=== PATIENT | female | born 1970 | race Caucasian/White ===

== ENCOUNTER 2022-05-23 02:44 | Inpatient (IN) | payer OTHER ==
[~2022-05-23] VITALS: Ht 160 cm; Wt 99.3 kg
[2022-05-23 02:57] VITALS: BP 109/53
--- NOTE | 2022-05-23 03:56 | NUR ---
Pt to room
--- NOTE | 2022-05-23 03:56 | NUR ---
Patient resting in bed, A/Ox4, chest rise and fall symmetrical, no c/o pain or s/s of distress, patient on monitor Addendum: 05/23/22 at 0356 by [id number] Patient resting in bed, A/Ox4, chest rise and fall symmetrical, no s/s of distress, patient on monitor
--- NOTE | 2022-05-23 04:18 | NUR ---
ER physycian assessing patient.
--- NOTE | 2022-05-23 06:28 | NUR ---
Dr. Nelson with pt
--- NOTE | 2022-05-23 06:30 | NUR ---
Patient resting in bed, A/Ox4, chest rise and fall symmetrical, no c/o pain or s/s of distress, patient on monitor
[2022-05-23] MEDS ORDERED: NACL 0.9% 1,000 ML IV ONE ×2 (07:10→10:20)
--- NOTE | 2022-05-23 07:24 | NUR ---
Change of shift report given to AM shift Nurse Giorgi REDDY. AM shift Nurse Giorgi RN verbalized understanding of report, no further questions.
--- NOTE | 2022-05-23 07:30 | NUR ---
a/o times 4, abd pain 08/02, no n/v, o2 sat 98% ra, ns started lac, sr up times 2, labs drawn sent to lab
[2022-05-23 07:33] LABS: BASOPHILS # (AUTO) 0.1 K/uL (0.00-0.22); BASOPHILS % (AUTO) 0.3 % (0.0-2.0); HEMATOCRIT 38.7 % (36-48); HEMOGLOBIN 12.7 g/dL (12.0-16.0); LYMPHOCYTES # (AUTO) 0.8 K/uL (2.5-16.5); MEAN CORPUSCULAR HEMOGLOBIN 30 pg (27-31); MEAN CORPUSCULAR HGB CONC 33 g/dL (33-37); MEAN CORPUSCULAR VOLUME 92.1 fL (80-94); MONOCYTES # (AUTO) 0.8 K/uL (0.8-1.0); MONOCYTES % (AUTO) 3.9 % (1.7-9.3); NEUTROPHILS # (AUTO) 19.8 K/uL (1.8-7.7); PLATELET COUNT (AUTO) 250 K/uL (140-450); RED BLOOD CELL COUNT(AUTO) 4.21 MIL/uL (4.20-5.40); WHITE BLOOD COUNT (AUTO) 21.5 K/uL (4.8-10.8)
[2022-05-23 07:52] LABS: ALBUMIN 4.2 g/dL (3.4-5.0); ANION GAP 11.6 (8-16); CARBON DIOXIDE 29.4 mmol/L (21-32); CREATININE 0.8 mg/dL (0.6-1.3); TOTAL BILIRUBIN 0.5 mg/dL (0.0-1.0)
[2022-05-23 07:54] LABS: LYMPHOCYTES % (AUTO) 3.7 % (20.5-51.1); NEUTROPHILS % (AUTO) 92.1 % (42.2-75.2)
[2022-05-23] MEDS ORDERED: KETOROLAC 15 MG/ML VIAL IVP ONE (08:35)
--- NOTE | 2022-05-23 09:19 | NUR ---
PT TO CT VIA WC
[2022-05-23 09:56] LABS: APPEARANCE,URINE CLEAR (CLEAR); BILIRUBIN,URINE NEGATIVE (NEGATIVE); BLOOD, URINE 1+ (NEGATIVE); COLOR,URINE ORANGE (YELLOW); LEUKOCYTE ESTERASE ,URINE TRACE (NEGATIVE); NITRITE, URINE POSITIVE (NEGATIVE); PH,URINE 5.5 (5.0-9.0); UGLUCOSE TRACE (NEGATIVE)
[2022-05-23 10:15] LABS: RBC,URINE 0-5 /HPF (0-5)
[2022-05-23] MEDS ORDERED: metroNIDAZOLE 500 MG/NS PREMIX 100 ML IV ONE (10:15)
[2022-05-23] MEDS ORDERED: cefTRIAXone 1,000 MG VIAL ONE (10:37)
--- NOTE | 2022-05-23 11:00 | NUR ---
SLEEPING, NO AC DISTRESS, O2 SAT 98% RA, SR UP TIMES 2.
[2022-05-23] MEDS ORDERED: ZOLPIDEM 5 MG TAB PO PRN (11:10)
[2022-05-23] MEDS ORDERED: ONDANSETRON 4 MG/2 ML VIAL IM/IVP PRN (11:10)
[2022-05-23] MEDS ORDERED: guaiFENesin DM 200/20 MG-10 ML 10 ML UDC PO PRN (11:10)
[2022-05-23] MEDS ORDERED: DOCUSATE SODIUM 100 MG GELCAP PO PRN (11:10)
[2022-05-23] MEDS ORDERED: ACETAMINOPHEN 325 MG TAB PO PRN (11:10)
[2022-05-23 11:46] LABS: PROTHROMBIN TIME 9.7 secs (10.8-13.4)
[2022-05-23 11:52] LABS: FREE T4 (FREE THYROXINE) 1.13 ng/dL (0.76-1.46); MAGNESIUM 1.9 mg/dL (1.8-2.4); PHOSPHORUS 2.9 mg/dL (2.5-4.9); THYROID STIMULATING HORMONE 1.45 uIU/mL (0.34-3.74)
[2022-05-23] MEDS ORDERED: ATEN25TA2 PO (12:10)
[2022-05-23] MEDS ORDERED: LEVO0.179 PO (12:10)
--- NOTE | 2022-05-23 12:45 | NUR ---
RECEIVED REPORT FROM ER NURSE FOR CONTINUITY OF CARE. PT STABLE ON TRANSPORT AND NO SIGN OF DISTRESS. A&OX4, SKIN INTACT, LOWER ABD PAIN 9/10, AMBULATORY AND VITALS STABLE. PT HAS A 20G IV IN HER LAC THAT IS INFUSING D5/NS AT 150ML/HR. CALL LIGHT WITHIN REACH, BED IN LOW POSITION AND ALL SAFETY MEASURES IN PLACE. WILL CONTINUE TO MONITOR.
--- NOTE | 2022-05-23 12:49 | NUR ---
PT TAKEN TO FLOOR, NO AC DISTRESS, REPORT GIVEN TO RENNY
[2022-05-23] MEDS: KETOROLAC 15 MG/ML VIAL IVP SCH ×2 (13:00→20:06)
[2022-05-23] MEDS: DEXT 5% /NACL 0.9% 1,000 ML IV SCH ×2 (14:05→17:50)
[2022-05-23] MEDS: HYDROcodone/APAP 7.5/325 MG 1 TAB PO PRN ×2 (16:44→22:27)
--- NOTE | 2022-05-23 19:00 | NUR ---
ENDORSED PT TO LABORER GOLF COURSE NURSE SHANNON FOR CONTINUITY OF CARE. PT IS STABLE.
--- NOTE | 2022-05-23 19:01 | NUR ---
RECEIVED PT FROM MORNING SHIFT NURSE. PT IS LYING ON BED, SLEEPING. PT IS AOX4, AMBULATORY, ABLE TO VERBALIZE NEEDS AND ABLE TO FOLLOW COMMANDS. PT IS ON ROOM AIR AND ON NPO EXCEPT MEDS AND CAN DRINK CUP OF WATER. PT HAS IV ON LEFT AC GAUGE 20 RUNNING WITH D5NS AT 150 ML/HR. PT SKIN IS INTACT. ALL SAFETY MEASURES IMPLEMENTED. BED IN LOW POSITION, BED WHEELS ON LOCK AND CALL LIGHT WITHIN REACH.
--- NOTE | 2022-05-23 19:30 | NUR ---
PT WAS PUT ON 3L NC DUE PT'S O2 SAT IS 82. PT IS NOW SATING AT 94%
[2022-05-23] MEDS: metroNIDAZOLE 500 MG/NS PREMIX 100 ML IV SCH (20:07)
--- NOTE | 2022-05-23 20:07 | NUR ---
SCHEDULED AND PRESCRIBED MEDICATION WAS GIVEN TO PT PER MD ORDER. ALL SAFETY MEASURES IMPLEMENTED. BED IN LOW POSITION, BED WHEELS ON LOCK AND CALL LIGHT WITHIN REACH.
--- NOTE | 2022-05-23 22:27 | NUR ---
PRN PAIN MEDICATION WAS GIVEN TO PT DUE TO ABD PAIN WITH PAIN SCALE OF 6/10. ALL SAFETY MEASURES IMPLEMENTED. BED IN LOW POSITION, BED WHEELS ON LOCK AND CALL LIGHT WITHIN REACH.
--- NOTE | 2022-05-24 | NUR ---
PT IS SLEEPING. CHEST RISE AND FALL SYMMETRICALLY NOTED. RESPIRATION IS EVEN AND UNLABORED. ALL SAFETY MEASURES IMPLEMENTED. BED IN LOW POSITION, BED WHEELS ON LOCK AND CALL LIGHT WITHIN REACH.
[2022-05-24] MEDS: DEXT 5% /NACL 0.9% 1,000 ML IV SCH ×4 (00:41→20:30)
[2022-05-24] MEDS: HYDROcodone/APAP 7.5/325 MG 1 TAB PO PRN ×2 (02:34→16:41)
[2022-05-24] MEDS: KETOROLAC 15 MG/ML VIAL IVP SCH ×3 (04:18→21:27)
[2022-05-24] MEDS: metroNIDAZOLE 500 MG/NS PREMIX 100 ML IV SCH ×3 (04:18→21:26)
[2022-05-24 06:14] LABS: HEMATOCRIT 37.1 % (36-48); HEMOGLOBIN 12.4 g/dL (12.0-16.0); LYMPHOCYTES # (AUTO) 0.6 K/uL (2.5-16.5); LYMPHOCYTES % (AUTO) 3.9 % (20.5-51.1); MEAN CORPUSCULAR HEMOGLOBIN 31 pg (27-31); MEAN CORPUSCULAR HGB CONC 33 g/dL (33-37); MEAN CORPUSCULAR VOLUME 93.2 fL (80-94); MONOCYTES # (AUTO) 0.5 K/uL (0.8-1.0); MONOCYTES % (AUTO) 3.1 % (1.7-9.3); NEUTROPHILS # (AUTO) 13.5 K/uL (1.8-7.7); PLATELET COUNT (AUTO) 219 K/uL (140-450); RED BLOOD CELL COUNT(AUTO) 3.98 MIL/uL (4.20-5.40); RED CELL DISTRIBUTION WIDTH 13.9 % (11.6-13.7); WHITE BLOOD COUNT (AUTO) 14.5 K/uL (4.8-10.8)
[2022-05-24 06:34] LABS: ANION GAP 16.2 (8-16); CREATININE 1.5 mg/dL (0.6-1.3); POTASSIUM 4.2 mmol/L (3.5-5.1)
[2022-05-24 07:08] LABS: T4 (THYROXINE) 7.1 ug/dL (4.5-12.0)
--- NOTE | 2022-05-24 07:11 | NUR ---
PT IS STABLE. NO ACUTE EVENTS THROUGHOUT THE NIGHT.NO S/SX OF DISTRESS AT THIS MOMENT.ALL NEEDS ATTENDED. ALL PRECAUTIONS IN PLACE. CALL LIGHT WITHIN REACH. ENDORSED TO DAY RN.
[2022-05-24] MEDS: PANTOPRAZOLE 40 MG TABEC PO SCH (08:34)
--- NOTE | 2022-05-24 08:36 | NUR ---
ADMINISTERED SCHEDULED MEDICATION DUE. PT TOLERATING WELL.
--- NOTE | 2022-05-24 08:42 | NUR ---
INFORMED DR EDUARDO ABOUT PT BP 116/39. AND HOW BP WAS TRENDING DOWN. NO SYMPTOMS. PT C/O PAIN 01/02. AWAITING FOR NEW ORDERS.
--- NOTE | 2022-05-24 09:07 | NUR ---
PATIENT HAS BEEN SCREENED AND CATEGORIZED MODERATE NUTRITION RISK. PATIENT WILL BE SEEN WITHIN 3-5 DAYS OF ADMISSION. REVIEWED BY GIGI ART RD
[2022-05-24] MEDS ORDERED: IBUPROFEN 600 MG TAB PO SCH (09:37)
--- NOTE | 2022-05-24 10:27 | NUR ---
MEDICATED PT FOR PAIN WITH IBUPROFEN. ORDERED BY DR EDUARDO.
[2022-05-24] MEDS ORDERED: LORazepam 2 MG/ML VIAL IVP SCH (11:15)
[2022-05-24] MEDS ORDERED: MORPHINE SULFATE 2 MG/ML SYR IVP PRN (11:35)
--- NOTE | 2022-05-24 13:55 | NUR ---
FAMILY AT BEDSIDE.SPOKE TO PT LETI. REQUESTED COPY OF CT IMAGING DONE. STATES FAMILY IS VERY CONCERNED IN [place] AND HAS A DR IN FAMILY IN [place] AND WANTS TO SHARE IMAGING RESULTS.
--- NOTE | 2022-05-24 14:44 | NUR ---
RECEIVED CALL FROM LAB WITH CRITICAL VALUE LACTIC ACID 3.0. INFORMED DR EDUARDO
--- NOTE | 2022-05-24 14:45 | NUR ---
MAKING ROUNDS PT IN BED SLEEPING. SON AT BEDSIDE.
--- NOTE | 2022-05-24 15:20 | NUR ---
PT TAKEN OFF UNIT TO RADIOLOGY.
--- NOTE | 2022-05-24 15:41 | NUR ---
PT RETURN FROM RADIOLOGY. SON AT BEDSIDE. PT AMBULATED TO RESTROOM AND BACK TO BED. PT PLACED ON OXYGEN AND IV CONNECTED. REPOSITIONED IN BED. BED IN LOWEST POSITION. CALL LIGHT WITHIN REACH.
[2022-05-24 16:00] VITALS: BP 118/50
--- NOTE | 2022-05-24 17:30 | NUR ---
MAKING ROUNDS. PT STATES SHE FEELS BETTER DUE TO THE MEDICATION. AT BEDSIDE.
--- NOTE | 2022-05-24 18:57 | NUR ---
MAKING ROUNDS PT TALKING WITH FAMILY MEMBER AT BEDSIDE. CALL LIGHT WITHIN REACH.
--- NOTE | 2022-05-24 19:15 | NUR ---
ENDORSED PT TO HAND RIGGER NURSE. PT IN STABLE CONDITION.
--- NOTE | 2022-05-24 19:16 | NUR ---
RECEIVED REPORT FROM DAY SHIFT NURSE MARILU FOR CONTINUITY OF CARE. PT AWAKE IN BED WITH FAMILY MEMBER AT BEDSIDE. A&O4, ABLE TO COMMUNICATE NEEDS. ON 3 L CANNULA, RESPIRATIONS EVEN AND UNLABORED. AMBULATORY. CONTINENT TO BOWEL AND BLADDER. SKIN INTACT, WARM AND DRY TO TOUCH. NPO EXCEPT MEDS CAN DRINK WATER. NPO SIGN IN PLACE. IV SITE ON LAC 20G, INFUSING IVF. INITIAL ASSESSMENT DONE. POC DISCUSSED. CALL LIGHT WITHIN REACH SAFETY PRECAUTIONS IN PLACE.
[2022-05-24 20:00] VITALS: BP 108/63
--- NOTE | 2022-05-24 20:00 | NUR ---
Patient's Plan of Care was discussed and reviewed with AVTAR HARE.
--- NOTE | 2022-05-24 21:40 | NUR ---
ADMINISTERED 2100 MEDICATION METRONIDAZOLE IVPB AND TORADOL IVP TO PATIENT. BP WAS 108/63, HR WAS 101. PATIENT TOLERATED WELL. INFORMED COMMERCIAL GREEN BUILDING DESIGNER PAYAM THAT MEDICATION WAS ADMINISTERED.
[2022-05-25] MEDS: DEXT 5% /NACL 0.9% 1,000 ML IV SCH ×5 (00:14→23:10)
[2022-05-25] MEDS: HYDROcodone/APAP 7.5/325 MG 1 TAB PO PRN ×2 (01:27→14:24)
--- NOTE | 2022-05-25 01:27 | NUR ---
PT COMPLAINED OF ABD PAIN 10/02. PT STATED NORCO WORKED WELL WITH HER PAIN. PRN PAIN MED WAS GIVEN.
[2022-05-25] MEDS ORDERED: LORazepam 0.5 MG TAB PO PRN (03:15)
--- NOTE | 2022-05-25 03:19 | NUR ---
PT TOO ANXIOUS. PT STATED HER PAIN WAS NOT RELIEVED BY PAIN MED AND THAT SHE WAS TOO ANXIOUS. V/S 145/82, 114, 40 97% ON 3L NC. DR EDUARDO WAS INFORMED. RECEIVED ORDER FOR ANXIETY. ATIVAN 0.5 MG PO PRN Q6HR. PT CLOSELY MONITORED.
[2022-05-25 04:00] VITALS: BP 142/83
--- NOTE | 2022-05-25 04:00 | NUR ---
V/S WAS TAKEN. PT STATED HER ANXIETY WAS RELIEVED A LITTLE BIT. STILL HAVING 9/10 ABD PAIN. MAUREEN GARCIA WAS INFORMED.
[2022-05-25] MEDS: metroNIDAZOLE 500 MG/NS PREMIX 100 ML IV SCH ×3 (04:28→20:09)
[2022-05-25] MEDS: KETOROLAC 15 MG/ML VIAL IVP SCH (04:29)
--- NOTE | 2022-05-25 04:43 | NUR ---
ADMINISTERED 0500 METRONIDAZOLE IVPB AND TORADOL IVP MEDICATION TO PATIENT. PATIENT TOLERATED WELL. INFORMED AVTAR HARE THAT MEDICATION WAS GIVEN.
[2022-05-25] MEDS ORDERED: LEVOTHYROXINE 0.075 MG TAB ONE (05:33)
[2022-05-25] MEDS ORDERED: LEVOTHYROXINE 0.1 MG TAB ONE (05:34)
[2022-05-25] MEDS: LEVOTHYROXINE 0.075 MG, LEVOTHYROXINE 0.1 MG PO SCH ×2 (05:35)
--- NOTE | 2022-05-25 07:05 | NUR ---
ASSUMED CONTINUITY OF CARE. INITIAL ASSESSMENT DONE. EXPLAINED DIAGNOSIS, PLAN OF CARE, PAIN MANAGEMENT TEACHING, NPO EXCEPT MEDS, USE OF CALL LIGHT/BED/TV/BATHROOM. VERBALIZED UNDERSTANDING. CALL LIGHT WITHIN REACH.
--- NOTE | 2022-05-25 07:08 | NUR ---
GAVE BEDSIDE REPORT TO DAY SHIFT NURSE LAMINE FOR CONTINUITY OF CARE. ALL NEEDS MET THROUGHOUT SHIFT. PT IS STABLE.
[2022-05-25 07:25] LABS: HEMATOCRIT 33.7 % (36-48); HEMOGLOBIN 11.6 g/dL (12.0-16.0); MEAN CORPUSCULAR HEMOGLOBIN 32 pg (27-31); MEAN CORPUSCULAR HGB CONC 35 g/dL (33-37); MEAN CORPUSCULAR VOLUME 91.6 fL (80-94); PLATELET COUNT (AUTO) 147 K/uL (140-450); RED BLOOD CELL COUNT(AUTO) 3.68 MIL/uL (4.20-5.40); RED CELL DISTRIBUTION WIDTH 13.9 % (11.6-13.7); WHITE BLOOD COUNT (AUTO) 12.8 K/uL (4.8-10.8)
[2022-05-25 07:30] LABS: ANION GAP 12.7 (8-16); CARBON DIOXIDE 24.6 mmol/L (21-32); CREATININE 0.8 mg/dL (0.6-1.3); POTASSIUM 3.3 mmol/L (3.5-5.1)
[2022-05-25 08:28] VITALS: BP 153/75
[2022-05-25 08:47] LABS: EOSINOPHILS % (MANUAL) 2 % (0-4); LYMPHOCYTES % (MANUAL) 3 % (20-46); MONOCYTES % (MANUAL) 1 % (5-12)
[2022-05-25] MEDS: PANTOPRAZOLE 40 MG TABEC PO SCH (08:49)
[2022-05-25] MEDS: atenoloL 25 MG TAB PO SCH (08:49)
[2022-05-25] MEDS ORDERED: NON-FORMULARY ITEM (Levothyroxine Sodium 1 TAB) PO SCH (09:00)
[2022-05-25] MEDS ORDERED: MAGNESIUM HYDROXIDE 2400 MG/30 ML UDC PO PRN (09:20)
--- NOTE | 2022-05-25 09:20 | NUR ---
DC PLANNING LATE ENTRY PT SEEN 05/24 VINITA MET WITH PT AND PTS PARTNER, LETI AT BEDSIDE TO COMPLETE ASSESSMENT. PT ALERT AND ORIENTED AND ABLE TO PROVIDE ALL OF HER OWN INFORMATION. PT REPORTS RESIDING IN A SINGLE STORY HOME WITH HER AUNT, AT THE ADDRESS LISTED ON FILE. PT IDENTIFIED LETI FERNANDEZ, PARTNER, AND IKER GARCIA, UNCLE, . PT DENIES AD IN PLACE AND DECLINED AD OFFERED BY VINITA. PT REPORTS MEETING WITH PCP REGULARLY, LAST VISIT WITH PCP, 2-3 MONTHS AGO. PT DENIES AD IN PLACE AND DECLINED AD OFFERED BY VINITA. PT REPORTS MEDICATION COMPLIANCE AND REPORTS RECEIVING MEDICATION FROM [facility] IN [facility] [address], IN [place] WHEN NEEDED. PT REPORTS BEING INDEPENDENT IN ALL ACTIVITIES AND DENIES USE OF DME. PT DENIES MH/HOLLIDAY HX. PT DENIES HX OF DIABETES, DIALYSIS, HH, SNF PLACEMENT. Addendum: 05/25/22 at 0921 by Kristine AMADO Amended: Links added.
[2022-05-25] MEDS ORDERED: MAGNESIUM HYDROXIDE 2400 MG/30 ML UDC PO SCH (09:55)
[2022-05-25] MEDS: POTASSIUM CHLORIDE 10 MEQ TABER PO PRN (10:11)
--- NOTE | 2022-05-25 10:59 | NUR ---
DR. EDUARDO CAME AND SPOKE TO PT. AND PT. AT BEDSIDE.
[2022-05-25] MEDS ORDERED: MORPHINE SULFATE 2 MG/ML SYR IVP PRN (11:10)
--- NOTE | 2022-05-25 13:30 | NUR ---
INSERTED NEW IV ACCESS ON LEFT FOREARM GAUGE #22. D/C AND REMOVED IV ACCESS ON LEFT AC GAUGE #20 DUE TO LEAKAGE.
[2022-05-25 16:00] VITALS: BP 110/64
--- NOTE | 2022-05-25 16:42 | NUR ---
AMBULATES ON HALLWAY WITH ASSISTANCE FROM PT. . TOLERATED WELL. NO C/O PAIN. NO SOB, NOTED.
--- NOTE | 2022-05-25 19:25 | NUR ---
REPORT GIVEN TO SHANNON TEIXEIRA FOR CONTINUITY OF CARE. IVF INFUSING WELL. IN STABLE CONDITION.
--- NOTE | 2022-05-25 19:26 | NUR ---
RECEIVED PT FROM MORNING SHIFT NURSE. PT IS SITTING ON THE BED, TALKING TO HIS BEDSIDE. PT IS AOX4, AMBULATORY, ABLE TO VERBALIZE NEEDS AND ABLE TO FOLLOW COMMANDS. PT IS ON 3L NC AND ON FULL LIQUID DIET. PT HAS IV ON LEFT FOREARM GAUGE 20 RUNNING WITH D5NS AT 150 ML/HR. PT SKIN IS INTACT. PT DENIES PAIN AT THIS TIME. NO S/S OF RESPIRATORY DISTRESS NOTED. ALL SAFETY MEASURES IMPLEMENTED. BED IN LOW POSITION, BED WHEELS ON LOCK AND CALL LIGHT WITHIN REACH.
--- NOTE | 2022-05-25 22:00 | NUR ---
ASSISTED PT TO THE BATHROOM. NO COMPLAIN OF PAIN AT THIS TIME. NO S/S OF RESPIRATORY DISTRESS NOTED. ALL SAFETY MEASURES IMPLEMENTED. BED IN LOW POSITION, BED WHEELS ON LOCK AND CALL LIGHT WITHIN REACH.
[2022-05-26] MEDS: HYDROcodone/APAP 7.5/325 MG 1 TAB PO PRN ×2 (00:12→12:24)
--- NOTE | 2022-05-26 00:12 | NUR ---
PRN PAIN MEDICATION WAS GIVEN TO PT DUE TO ABD PAIN WITH THE PAIN SCALE OF 6/10. ALL SAFETY MEASURES IMPLEMENTED. BED IN LOW POSITION, BED WHEELS ON LOCK AND CALL LIGHT WITHIN REACH.
--- NOTE | 2022-05-26 02:00 | NUR ---
PT IS ON SLEEP. CHEST RISE AND FALL SYMMETRICALLY NOTED. RESPIRATION IS EVEN AND UNLABORED. ALL SAFETY MEASURES IMPLEMENTED. BED IN LOW POSITION, BED WHEELS ON LOCK AND CALL LIGHT WITHIN REACH.
[2022-05-26 04:00] VITALS: BP 102/50
[2022-05-26] MEDS: metroNIDAZOLE 500 MG/NS PREMIX 100 ML IV SCH ×3 (04:19→20:02)
[2022-05-26] MEDS ORDERED: LEVOTHYROXINE 0.1 MG TAB ONE ×2 (05:31→05:34)
[2022-05-26] MEDS ORDERED: LEVOTHYROXINE 0.075 MG TAB ONE ×2 (05:31→05:34)
[2022-05-26] MEDS: LEVOTHYROXINE 0.075 MG, LEVOTHYROXINE 0.1 MG PO SCH ×2 (05:39)
[2022-05-26] MEDS: DEXT 5% /NACL 0.9% 1,000 ML IV SCH ×3 (05:59→19:59)
[2022-05-26 07:15] LABS: BASOPHILS % (AUTO) 0.1 % (0.0-2.0); EOSINOPHILS % (AUTO) 0.2 % (0.0-4.0); HEMATOCRIT 30.7 % (36-48); HEMOGLOBIN 10.3 g/dL (12.0-16.0); LYMPHOCYTES # (AUTO) 0.6 K/uL (2.5-16.5); LYMPHOCYTES % (AUTO) 5.4 % (20.5-51.1); MEAN CORPUSCULAR HEMOGLOBIN 31 pg (27-31); MEAN CORPUSCULAR HGB CONC 33 g/dL (33-37); MEAN CORPUSCULAR VOLUME 92.6 fL (80-94); MONOCYTES # (AUTO) 0.4 K/uL (0.8-1.0); MONOCYTES % (AUTO) 3.7 % (1.7-9.3); NEUTROPHILS # (AUTO) 10.5 K/uL (1.8-7.7); NEUTROPHILS % (AUTO) 90.6 % (42.2-75.2); PLATELET COUNT (AUTO) 150 K/uL (140-450); RED BLOOD CELL COUNT(AUTO) 3.32 MIL/uL (4.20-5.40); RED CELL DISTRIBUTION WIDTH 14.3 % (11.6-13.7); WHITE BLOOD COUNT (AUTO) 11.6 K/uL (4.8-10.8)
[2022-05-26 07:28] LABS: ANION GAP 11.5 (8-16); CARBON DIOXIDE 25.1 mmol/L (21-32); CREATININE 0.7 mg/dL (0.6-1.3); POTASSIUM 3.6 mmol/L (3.5-5.1)
--- NOTE | 2022-05-26 07:40 | NUR ---
PT IS STABLE. NO ACUTE EVENTS THROUGHOUT THE NIGHT.NO S/SX OF DISTRESS AT THIS MOMENT.ALL NEEDS ATTENDED. ALL PRECAUTIONS IN PLACE. CALL LIGHT WITHIN REACH. ENDORSED TO DAY NURSE.
--- NOTE | 2022-05-26 07:41 | NUR ---
RECEIVED REPORT FROM PHOTOGRAPHIC COLORIST NURSE, SHANNON, FOR CONTINUITY OF CARE. PT IN BED RESTING AT THIS TIME. RESPIRATIONS ARE EVEN AND UNLABORED. PT IS ON 3L 02 VIA NC. NO SIGNS OF DISTRESS NOTED. PT IS ALERT AND ORIENTED X4, ABLE TO VERBALIZE NEEDS. NO SIGNS OF PAIN OR DISCOMFORT NOTED. CALL LIGHT WITHIN REACH. ALL SAFETY MEASURES IN PLACE.
[2022-05-26 08:00] VITALS: BP 105/51
[2022-05-26] MEDS: PANTOPRAZOLE 40 MG TABEC PO SCH (08:14)
[2022-05-26] MEDS: atenoloL 25 MG TAB PO SCH (08:15)
--- NOTE | 2022-05-26 08:15 | NUR ---
ADMINISTERED ALL SCHEDULED MEDICATION. EDUCATED PT ON MEDS ADMINISTERED. ANSWERED ALL QUESTIONS. PT TOLERATED WELL.
--- NOTE | 2022-05-26 12:05 | NUR ---
DID ROUNDS ON PT. PT RESTING AT THIS TIME. FAMILY AT BEDSIDE. NO SIGNS OF DISTRESS. NO SIGNS OF PAIN OR DISCOMFORT.
[2022-05-26 16:00] VITALS: BP 111/61
--- NOTE | 2022-05-26 16:01 | NUR ---
WENT TO CHECK ON PT. PT AT BEDSIDE. PT ASKING FOR ANOTHER UPDATE. GAVE UPDATE.
--- NOTE | 2022-05-26 16:16 | NUR ---
05/26/22 RD INITIAL ASSESSMENT COMPLETED PLEASE REFER TO NUTRITION ASSESSMENT UNDER CARE ACTIVITY FOR ESTIMATED NUTRITIONAL NEEDS. 1. RECOMMEND ADDING CCHO 60 GM TO FULL LIQUID DIET TOLERATED 2. RECOMMEND ADVANCING TO CCHO 60 GM DIET WHEN/IF MEDICALLY APPROPRIATE 3. RECOMMEND GLUCERNA BID TO HELP INCREASE PO INTAKE -PROVIDES 440 KCAL AND 20 GM PROTEIN DAILY 4. PROVIDED NUTRITION EDUCATION WITH HANDOUTS ON CARB COUNTING FOR DM 5. RD TO FOLLOW-UP 3-5 DAYS, MODERATE RISK REVIEWED BY GIGI ART RD
--- NOTE | 2022-05-26 19:10 | NUR ---
ENDORSED PT TO DRAWING PRESS OPERATOR NURSESHANNON, FOR CONTINUITY OF CARE. PT IS STABLE.
--- NOTE | 2022-05-26 22:00 | NUR ---
ASSISTED PT TO THE BATHROOM. PT DENIES PAIN AT THIS TIME. NO S/S OF RESPIRATORY DISTRESS NOTED. ALL SAFETY MEASURES IMPLEMENTED. BED IN LOW POSITION, BED WHEELS ON LOCK AND CALL LIGHT WITHIN REACH.
[2022-05-27] VITALS: BP 112/52
--- NOTE | 2022-05-27 | NUR ---
PT IS SLEEPING. CHEST RISE AND FALL SYMMETRICALLY NOTED. RESPIRATION IS EVEN AND UNLABORED.ALL SAFETY MEASURES IMPLEMENTED. BED IN LOW POSITION, BED WHEELS ON LOCK AND CALL LIGHT WITHIN REACH.
--- NOTE | 2022-05-27 02:00 | NUR ---
CHECKED THE PT STILL SLEEPING. CHEST RISE AND FALL SYMMETRICALLY NOTED. RESPIRATION IS EVEN AND UNLABORED.ALL SAFETY MEASURES IMPLEMENTED. BED IN LOW POSITION, BED WHEELS ON LOCK AND CALL LIGHT WITHIN REACH.
[2022-05-27] MEDS: DEXT 5% /NACL 0.9% 1,000 ML IV SCH ×3 (02:01→13:25)
[2022-05-27] MEDS: metroNIDAZOLE 500 MG/NS PREMIX 100 ML IV SCH ×3 (04:14→21:36)
[2022-05-27] MEDS ORDERED: LEVOTHYROXINE 0.075 MG TAB ONE (05:50)
[2022-05-27] MEDS ORDERED: LEVOTHYROXINE 0.1 MG TAB ONE (05:50)
[2022-05-27] MEDS: LEVOTHYROXINE 0.075 MG, LEVOTHYROXINE 0.1 MG PO SCH ×2 (05:53)
[2022-05-27 06:58] LABS: BASOPHILS % (AUTO) 0.2 % (0.0-2.0); EOSINOPHILS # (AUTO) 0.1 K/uL (0-0.4); EOSINOPHILS % (AUTO) 0.6 % (0.0-4.0); HEMOGLOBIN 10.5 g/dL (12.0-16.0); LYMPHOCYTES % (AUTO) 11.2 % (20.5-51.1); MEAN CORPUSCULAR HEMOGLOBIN 31 pg (27-31); MEAN CORPUSCULAR HGB CONC 34 g/dL (33-37); MEAN CORPUSCULAR VOLUME 92.1 fL (80-94); MONOCYTES # (AUTO) 0.8 K/uL (0.8-1.0); MONOCYTES % (AUTO) 8.4 % (1.7-9.3); NEUTROPHILS # (AUTO) 7.3 K/uL (1.8-7.7); NEUTROPHILS % (AUTO) 79.6 % (42.2-75.2); PLATELET COUNT (AUTO) 166 K/uL (140-450); RED BLOOD CELL COUNT(AUTO) 3.36 MIL/uL (4.20-5.40); RED CELL DISTRIBUTION WIDTH 14.3 % (11.6-13.7); WHITE BLOOD COUNT (AUTO) 9.2 K/uL (4.8-10.8)
--- NOTE | 2022-05-27 07:05 | NUR ---
RECEIVED REPORT GIVEN FROM NIGHT NURSE SHANNON FOR CONTINUITY OF CARE. INITIAL ASSESMENT DONE. IVF INFUSING WELL. CALL LIGHT KEPT WITHIN REACH. WILL CONTINUE TO MONITOR.
--- NOTE | 2022-05-27 07:10 | NUR ---
RECEIVED REPORT FROM NIGHT NURSE ALVERTO FOR CONTINUITY OF CARE. IVF INFUSING WELL. INITIAL ASSESSMENT DONE. CALL LIGHT KEPT WITHIN REACH. WILL CONTINUE TO MONITOR.
[2022-05-27 07:17] LABS: ANION GAP 8.8 (8-16); CARBON DIOXIDE 26.2 mmol/L (21-32); CREATININE 0.6 mg/dL (0.6-1.3)
[2022-05-27 08:00] VITALS: BP 122/64
--- NOTE | 2022-05-27 08:30 | NUR ---
SEEN BY DR. ARAIZA
[2022-05-27] MEDS: POTASSIUM CHLORIDE 10 MEQ TABER PO PRN (09:15)
[2022-05-27] MEDS: PANTOPRAZOLE 40 MG TABEC PO SCH (09:15)
[2022-05-27] MEDS: atenoloL 25 MG TAB PO SCH (09:15)
--- NOTE | 2022-05-27 09:15 | NUR ---
SCHEDULED MEDICATIONS GIVEN. TOLERATING WELL. PRN K-DUR WAS GIVEN FOR LOW POTASSIUM.
--- NOTE | 2022-05-27 13:45 | NUR ---
SEEN BY DR. DASH.
[2022-05-27] MEDS: POTASSIUM CHL 40 MEQ/ D5-1/2NS 1,000 ML IV SCH (13:50)
--- NOTE | 2022-05-27 13:50 | NUR ---
PT STATION ENGINEER CHIEF BY ALEJANDRINA FROM OR FOR EGD.
[2022-05-27] MEDS ORDERED: FUROSEMIDE 20 MG/2 ML VIAL IVP SCH (13:55)
[2022-05-27] MEDS ORDERED: diphenhydrAMINE 50 MG/ML VIAL ONE (13:58)
[2022-05-27] MEDS ORDERED: fentaNYL citrate 0.05 MG/ML VIAL ONE (13:58)
[2022-05-27] MEDS ORDERED: MIDAZOLAM 2 MG/2 ML VIAL ONE (13:58)
[2022-05-27] MEDS: MIDAZOLAM 2 MG/2 ML VIAL IVP ONE ×2 (14:13→14:49)
[2022-05-27] MEDS: fentaNYL citrate 0.05 MG/ML VIAL IVP ONE ×2 (14:14→14:48)
--- NOTE | 2022-05-27 14:35 | NUR ---
PT RETURN FROM OR. S/P EGD. V/S MONITOR. NO C/O PAIN OR DISCOMFORT. ON FULL LIQUID DIET. WILL CONTINUE TO MONITOR.
[2022-05-27 16:00] VITALS: BP 115/70
[2022-05-27] MEDS: METOCLOPRAMIDE 10 MG/2 ML INJ VIAL IVP SCH (17:00)
--- NOTE | 2022-05-27 18:30 | NUR ---
REINSERTED IV TO LT HAND. WITH GOOD BLOOD RETURN.
--- NOTE | 2022-05-27 19:20 | NUR ---
BEDSIDE REPORT GIVEN TO JOSE FOR CONTINUITY OF CARE. REMAINS STABLE.
--- NOTE | 2022-05-27 19:30 | NUR ---
RECEIVED REPORT FROM DAY SHIFT NURSE BANDAR FOR CONTINUITY OF CARE. PATIENT IS A&O X4, LITHUANIAN SPEAKING. PATIENT IS ON 3L NC; BREATHING IS NORMAL WITH SYMMETRICAL RISE AND FALL OF CHEST. IV IS A L HAND 24G; RUNNING D5 NS AT 150. PATIENT IS SITTING UP, HIGH-FOWLERS POSITION VISITING WITH FAMILY. BED IS IN LOWEST POSITION, WHEELS LOCKED, CALL LIGHT IN PLACE. WILL CONTINUE TO OBSERVE PATIENT.
[2022-05-27 20:00] VITALS: BP 102/40
[2022-05-27] MEDS: LORazepam 1 MG TAB PO PRN (21:48)
[2022-05-28 04:00] VITALS: BP 119/54
[2022-05-28] MEDS: POTASSIUM CHL 40 MEQ/ D5-1/2NS 1,000 ML IV SCH (04:11)
--- NOTE | 2022-05-28 04:30 | NUR ---
PATIENT SLEPT PERIODICALLY THROUGHOUT THE NIGHT, WAKING UP AT TIMES. NEW IV WAS PLACED IN PATIENT. NEW IV IS A 22G R HAND. IV IS PATENT. PATIENT IS BREATHING NORMAL WITH SYMMETRICAL RISE AND FALL OF CHEST. WILL CONTINUE TO OBSERVE PATIENT.
[2022-05-28] MEDS: HYDROcodone/APAP 7.5/325 MG 1 TAB PO PRN ×2 (04:44→13:12)
[2022-05-28] MEDS ORDERED: LEVOTHYROXINE 0.075 MG TAB ONE (05:35)
[2022-05-28] MEDS ORDERED: LEVOTHYROXINE 0.1 MG TAB ONE (05:35)
[2022-05-28] MEDS: LEVOTHYROXINE 0.075 MG, LEVOTHYROXINE 0.1 MG PO SCH ×2 (05:39)
[2022-05-28] MEDS: metroNIDAZOLE 500 MG/NS PREMIX 100 ML IV SCH (05:40)
[2022-05-28 06:33] LABS: BASOPHILS % (AUTO) 0.2 % (0.0-2.0); EOSINOPHILS # (AUTO) 0.1 K/uL (0-0.4); EOSINOPHILS % (AUTO) 0.7 % (0.0-4.0); HEMATOCRIT 37.6 % (36-48); HEMOGLOBIN 12.5 g/dL (12.0-16.0); LYMPHOCYTES # (AUTO) 1.5 K/uL (2.5-16.5); LYMPHOCYTES % (AUTO) 15.2 % (20.5-51.1); MEAN CORPUSCULAR HEMOGLOBIN 31 pg (27-31); MEAN CORPUSCULAR HGB CONC 33 g/dL (33-37); MEAN CORPUSCULAR VOLUME 91.6 fL (80-94); MONOCYTES # (AUTO) 1.3 K/uL (0.8-1.0); MONOCYTES % (AUTO) 13.3 % (1.7-9.3); NEUTROPHILS # (AUTO) 6.9 K/uL (1.8-7.7); NEUTROPHILS % (AUTO) 70.6 % (42.2-75.2); PLATELET COUNT (AUTO) 196 K/uL (140-450); RED CELL DISTRIBUTION WIDTH 14.3 % (11.6-13.7); WHITE BLOOD COUNT (AUTO) 9.8 K/uL (4.8-10.8)
[2022-05-28 06:53] LABS: CARBON DIOXIDE 26.1 mmol/L (21-32); CREATININE 0.6 mg/dL (0.6-1.3); POTASSIUM 3.1 mmol/L (3.5-5.1)
--- NOTE | 2022-05-28 07:10 | NUR ---
RECEIVED REPORT FROM JOSE FOR CONTINUITY OF CARE. IVF INFUSING WELL. CALL LIGHT KEPT WITHIN REACH. WILL CONTINUE TO MONITOR.
--- NOTE | 2022-05-28 07:22 | NUR ---
ENDORSED TO DAY SHIFT NURSE BANDAR FOR CONTINUITY OF CARE. PATIENT IS STABLE.
[2022-05-28] MEDS: POTASSIUM CHLORIDE 10 MEQ TABER PO PRN (08:26)
[2022-05-28] MEDS: atenoloL 25 MG TAB PO SCH (08:27)
--- NOTE | 2022-05-28 08:27 | NUR ---
AM MEDICATIONS WAS GIVEN. TOLERATING WELL. PRN K-DUR WAS GIVEN FOR LOW POTASSIUM.
[2022-05-28] MEDS: PANTOPRAZOLE 40 MG TABEC PO SCH (08:34)
[2022-05-28] MEDS: METOCLOPRAMIDE 10 MG/2 ML INJ VIAL IVP SCH ×2 (09:00→13:00)
[2022-05-28] MEDS ORDERED: CIPR500T4 PO (09:17)
[2022-05-28] MEDS ORDERED: LORA-476 PO (09:17)
[2022-05-28] MEDS ORDERED: METR-520 PO (09:17)
[2022-05-28] MEDS ORDERED: PANT40EC56 PO (09:17)
[2022-05-28] MEDS: LORazepam 1 MG TAB PO PRN (10:09)
--- NOTE | 2022-05-28 10:09 | NUR ---
PRN ATIVAN GIVEN FOR ANXIETY. TOLERATING WELL.
--- NOTE | 2022-05-28 12:04 | NUR ---
PT LEFT HOSPITAL, DISCHARGE BACK TO [facility]. TRANSPORTED BY [facility], ACCOMPANIED BY 1 STAFF PER WHEELCHAIR. ALERT AND ORIENTED. IV AND ID BAND REMOVED. DISCHARGE PAPER WORKS GIVEN. ALL PERSONAL BELONGINGS TAKEN. REMAINS STABLE. Addendum: 05/28/22 at 1219 by BANDAR PHIPPS LVN ENTERED WRONG DOCUMENTATION.
--- NOTE | 2022-05-28 13:20 | NUR ---
PT LEFT HOSPITAL, DISCHARGE TO HOME. TRANSPORTED BY PRIVATE CAR, ACCOMPANIED BY . ALERT AND ORIENTED. IV AND ID BAND REMOVED. DISCHARGE PAPER WORKS GIVEN. ALL PERSONAL BELONGINGS TAKEN. REMAINS STABLE.
== END 2022-05-28 13:58 | disposition home or self-care (01) | DRG 720 ==
LOC: MED 02:44 → MTU 11:45
PROVIDERS: ADMIT Family Medicine; ATTEND Family Medicine
PROC: 0DB68ZX Excision of Stomach, Via Natural or Artificial Opening Endoscopic, Diagnostic (ICD-10-PCS; principal; 2022-05-27 14:00)
DX: A41.9 Sepsis, unspecified organism (principal); N17.0 Acute kidney failure with tubular necrosis; J96.00 Acute respiratory failure, unspecified whether with hypoxia or hypercapnia; K56.600 Partial intestinal obstruction, unspecified as to cause; E87.20 Acidosis, unspecified; K76.0 Fatty (change of) liver, not elsewhere classified; E86.0 Dehydration; I10 Essential (primary) hypertension; N39.0 Urinary tract infection, site not specified; K57.32 Diverticulitis of large intestine without perforation or abscess without bleeding; K42.9 Umbilical hernia without obstruction or gangrene; F41.9 Anxiety disorder, unspecified; K59.00 Constipation, unspecified; E66.9 Obesity, unspecified; K29.70 Gastritis, unspecified, without bleeding; Z20.822 Contact with and (suspected) exposure to COVID-19; D64.9 Anemia, unspecified; E03.9 Hypothyroidism, unspecified; Z68.38 Body mass index [BMI] 38.0-38.9, adult; Z98.891 History of uterine scar from previous surgery
CPT/HCPCS: 36415; 71045; 74018; 80048; 80053; 81001; 82150; 82272; 83036; 83605; 83690; 83735; 83880; 84100; 84436; 84439; 84443; 84479; 85025; 85610; 85730; 86677; 87040; 87081; 87086; 96361; 96365; 96375; 99291; J0696; J1200; J1885; J2060; J2250; J2270; J2405; J2765; J3010; J3490; J7060; Q0092